=== PATIENT | male | born 1995 | race African-American/Black ===

== ENCOUNTER 2021-04-06 21:42 | Emergency (ER) | payer OTHER ==
[2021-04-06] MEDS ORDERED: cephALEXin 250 MG CAPSULE PO STA (23:00)
--- NOTE | 2021-04-06 23:04 | ED Physician Documentation ---
History of Present Illness - Stated complaint Stated Complaint: LT LEG & HEAD/DISCHARGE & HOT SPOT - Chief complaint Chief Complaint: Ext Problem - History obtained from History obtained from: Patient - Additonal information Additional information: 25-year-old man, previously healthy presents with scratch to his left knee that has become swollen, warm, and red as well as bug bite to the left calf that has become swollen and red. Also with itching and swelling to right base of the scalp. He noticed these all around the same time today. denies trauma, fevers. Review of Systems Constitutional: denies: Fever, Chills Skin: reports: Other (erythema, abrasion) PD PAST MEDICAL HISTORY - Past Medical History Past Medical History: No - Past Surgical History Past Surgical History: No - Present Medications Home Medications: Ambulatory Orders Medication Instructions Recorded Confirmed cephALEXin [Keflex] 500 mg PO Q6H #28 04/06/21 - Allergies Allergies/Adverse Reactions: Allergies Allergy/AdvReac Type Severity Reaction Status Date / Time No Known Drug Allergies Allergy Verified 04/06/21 22:05 - Social History Does the pt smoke?: No Smoking Status: Never smoker Does the pt drink ETOH?: Yes Does the pt have substance abuse?: No - Immunizations Immunizations are current?: Yes PD ED PE NORMAL - Vitals Vital signs reviewed: Yes - General General: Alert and oriented X 3, No acute distress, Well developed/nourished - HEENT HEENT: Atraumatic, PERRL, EOMI, Other (R base of scalp with mildly tender nodular swelling c/w LAD) - Neck Neck: Supple, no meningeal sign - Derm Derm: Normal color, Warm and dry, Other (Abrasion to left knee with underlying erythema and warmth, mild swelling. Left lateral calf with small area of erythema) - Extremities Extremities: No deformity, No tenderness to palpate, No calf tenderness / cord, Other (2+ bilateral DP and PT pulses. Normal sensation and capillary refill.) - Neuro Neuro: Alert and oriented X 3 - Psych Psych: Normal mood, Normal affect Results - Vitals Vitals: Vital Signs - 24 hr 04/06/21 04/06/21 22:03 22:21 Temperature 36.4 C L 36.4 C L Heart Rate 69 69 Respiratory 16 16 Rate Blood Pressure 123/109 H 123/109 H O2 Saturation 98 98 Oxygen O2 Source Room air PD MEDICAL DECISION MAKING - ED course ED course: 25-year-old man presents with cellulitis of the left lower extremity and possible bursa involvement of the left prepatellar bursa. He is low risk for MRSA and is immunocompetent, therefore I will give him a short course of Keflex and he will return if he does not have improvement. Also with right posterior scalp swelling consistent with lymphadenopathy. Strict return precautions given. Patient will follow up with his primary doctor. Orthopedics referral also given. Departure - Departure Disposition: Home, Self Care Clinical Impression: Cellulitis, Septic bursitis Condition: Good Instructions: Cellulitis Dc Follow-Up: Marc Holman MD [Provider Admit Priv/Credential] - Prescriptions: cephALEXin [Keflex] 500 mg PO Q6H #28 Comments: You were seen in the emergency department for skin infections of your left calf, left knee, as well as a bump on your head. Take your antibiotics as prescribed and also take ibuprofen 600 mg every 6 hours as needed for pain. Try to rest the knee as much as possible. Return to the emergency department if you have any new or worsening symptoms or other concerns. Follow-up with your primary doctor, or with orthopedics if you do not have improvement.
[2021-04-06 23:14] VITALS: BP 140/93
== END 2021-04-06 23:21 | disposition home or self-care (01) ==
LOC: ED 21:42
DX: L03.116 Cellulitis of left lower limb (principal); M71.162 Other infective bursitis, left knee
CPT/HCPCS: 99282; 99283